=== PATIENT | male | born 1985 | race Caucasian/White ===

== ENCOUNTER 2017-10-12 17:14 | Emergency (ER) | payer OTHER ==
[~2017-10-12] VITALS: Ht 177.8 cm; Wt 95.0 kg
[~2017-10-12 17:14] MED LIST: ADDERALL XR 2020 MG PO; AMBIEN10 MG PO; AMOXICILLIN500 M1 PO; BENTYL20 MG PO; METHADONE10 MG/1 M1 PO; SEROQUEL100 MG PO; SEROQUEL50 MG PO; TYLENOL WITH C1 EACH PO; VALIUM5 MG PO; VYVANSE60 MG PO; VYVANSE70 MG PO; WELLBUTRIN100 MG PO; ZOFRAN4 MG PO
[2017-10-12 17:32] VITALS: BP 138/91
[2017-10-12 18:11] LABS: HEMATOCRIT 45.4 % (38.0-50.0); HEMOGLOBIN 15.2 G/DL (12.5-16.6); MCH 28.8 PG (29.0-34.0); MCHC 33.5 G/DL (30.0-36.0); PLATELET COUNT 240 K/uL (156-360); RBC DIS.WIDTH-CV 12.6 % (11.8-14.6); RBC DIS.WIDTH-SD 39.2 % (39-53); RED BLOOD COUNT 5.28 M/uL (4.00-5.50); WHITE BLOOD COUNT 15.6 K/uL (4.1-10.2)
[2017-10-12 18:23] LABS: ALBUMIN 4.7 g/dL (3.2-4.8); CHLORIDE 101 mEq/L (99-109); POTASSIUM 3.9 mEq/L (3.7-5.4); SODIUM 140 mEq/L (136-147)
[2017-10-12 18:25] LABS: GLUCOSE 102 mg/dL (70-99); TOTAL PROTEIN 7.4 g/dL (6.4-8.3)
[2017-10-12 18:27] LABS: TOTAL BILIRUBIN 0.3 mg/dL (0.0-1.0)
[2017-10-12 18:29] LABS: ALKALINE PHOSPHATASE 75 IU/L (3-129); CREATININE 0.9 mg/dL (0.6-1.3); GFR ESTIMATE (CALCULATED) > 59 mL/min/ (58.99-99999)
[2017-10-12 18:30] LABS: UREA NITROGEN (BUN) 23 mg/dL (9-23)
[2017-10-12 18:31] LABS: AST (GOT) 23 IU/L (2-34)
[2017-10-12 18:32] LABS: ALT (GPT) 40 IU/L (3-49)
[2017-10-12 19:18] LABS: APPEARANCE CLOUDY ((CLEAR)); BILIRUBIN NEGATIVE; BLOOD NEGATIVE; COLOR YELLOW ((YELLOW)); GLUCOSE (STRIP) NEGATIVE; KETONES NEGATIVE; LEUKOCYTES NEGATIVE; NITRITE NEGATIVE; PROTEIN (STRIP) NEGATIVE; SPECIFIC GRAVITY 1.019 (1.000-1.030); UROBILINOGEN 0.2 MG/DL (0.2-1.0)
[2017-10-12 19:55] LABS: AMORPHOUS PHOSPHATE CRYSTALS 3+; BACTERIA NONE SEEN /HPF; EPITHELIAL CELLS NONE SEEN /HPF; MUCUS NONE SEEN /LPF; RED BLOOD CELLS NONE SEEN /HPF (0-5); UCUL ADDED? NO; WHITE BLOOD CELLS NONE SEEN /HPF (0-5)
== END 2017-10-12 20:05 | disposition left against medical advice (07) ==
LOC: EME 17:14
DX: R10.9 Unspecified abdominal pain (principal); Z53.21 Procedure and treatment not carried out due to patient leaving prior to being seen by health care provider
CPT/HCPCS: 80053; 81003; 85027